=== PATIENT | female | born 1970 | race Caucasian/White ===

== ENCOUNTER → 2017-02-03 | Outpatient (CLI) | payer BC | CPT/HCPCS: 99202 ==

== ENCOUNTER → 2017-09-01 | Outpatient (CLI) | payer BC ==
[2017-09-01 16:22] VITALS: BP 150/97; PULSE 93; TEMP 98.6; BMI 50.3
--- NOTE | 2017-09-01 16:27 | P.BASOAP ---
Subjective Progress Note Date: 09/01/17 Principal diagnosis: Morbid obesity Patient here today interested in sleeve conversion. She has considered for gastric bypass as well but prefers the risk benefit profile of the sleeve. She has gained weight since her band was emptied in the fall. No nausea or vomiting. No abdominal pain. No recent endoscopy. Objective - Vital Signs Vital signs: Vital Signs Temp 98.6 F 09/01/17 15:41 Pulse 93 09/01/17 15:41 Resp BP 150/97 09/01/17 15:41 Pulse Ox Intake & Output 08/31/17 09/01/17 09/01/17 18:59 06:59 18:59 Weight 129.773 kg - Exam Abdomen: Soft, nontender, nondistended Assessment/Plan (1) Morbid obesity Narrative/Plan: Patient I discussed the options of band removal with conversion to either sleeve gastrectomy and gastric bypass. She remains interested in sleeve gastrectomy but we'll continue to consider. We'll plan preoperative upper endoscopy. We'll confer with billing regarding appropriate preoperative authorization. Plan: Date: 09/01/17 Initial Weight: 118.705 kg Initial BMI: 46.0 Current Weight: 129.773 kg Current BMI: 50.3 Type of Surgery: Total Volume in Band: 0 Previous Volume: Volume Removed: Volume Added: Band Size:
== END | disposition home or self-care (01) ==
LOC: BARWHC3 15:03
PROVIDERS: ATTEND Surgery
DX: E66.01 Morbid (severe) obesity due to excess calories (principal); Z68.43 Body mass index [BMI] 50.0-59.9, adult
CPT/HCPCS: 93005; 99211

== ENCOUNTER → 2018-03-19 | Outpatient (CLI) | payer BC ==
--- NOTE | 2018-03-19 12:56 | US ---
EXAMINATION TYPE: US kidneys/renal and bladder DATE OF EXAM: 03/19/2018 COMPARISON: NONE CLINICAL HISTORY: R94.4 Abn kidney function studies. Abnormal labs. No pain per pt. EXAM MEASUREMENTS: Right Kidney: 9.8 x 5.2 x 4.7 cm Left Kidney: 10.2 x 4.7 x 5.9 cm Right Kidney: No hydronephrosis or masses seen Left Kidney: No hydronephrosis or masses seen Bladder: wnl, distended Bilateral Jets seen There is no evidence for hydronephrosis at this point in time. No nephrolithiasis is seen. No andi s are identified. The urinary bladder is anechoic. Bilateral ureteral jets are seen. IMPRESSION: No significant abnormality appreciated.
== END | disposition home or self-care (01) ==
LOC: RADUSWWP 12:06
PROVIDERS: ATTEND Internal Medicine Geriatric Medicine
DX: R94.4 Abnormal results of kidney function studies (principal)
CPT/HCPCS: 76770

== ENCOUNTER → 2018-04-27 | Outpatient (CLI) | payer BC ==
--- NOTE | 2018-04-28 07:11 | US ---
EXAMINATION TYPE: US bladder DATE OF EXAM: 04/27/2018 COMPARISON: NONE CLINICAL HISTORY: R33.9 Retention of urine. Retention of urine, recurrent UTI EXAM MEASUREMENTS: Post Void Residual Volume: 46.0 mL Color Doppler performed to assess ureteral jets. Bilateral Jets seen: yes Normal Post Void Residual (less than 50ml): yes IMPRESSION: No distinct abnormality urinary bladder at this time.
== END | disposition home or self-care (01) ==
LOC: RADUSWWP 16:18
PROVIDERS: ATTEND Internal Medicine Geriatric Medicine
DX: R33.9 Retention of urine, unspecified (principal)
CPT/HCPCS: 76857

== ENCOUNTER → 2021-07-30 | Outpatient (CLI) | payer BC ==
--- NOTE | 2021-07-30 16:01 | P.BASOAP ---
Subjective Progress Note Date: 07/30/21 Principal diagnosis: Epigastric abdominal pain Patient returns to the bariatric clinic complaining of epigastric pain. Says is been going on for the last several months. Says the pain moves occasionally. Sometimes it is near her port other times its in the subxiphoid location. Usually made worse by eating. No right upper quadrant pain. She does have heartburn. No dysphagia or vomiting. No workup thus far. Patient has a band present that was emptied years ago. She has not had restriction since the band was emptied. Patient being evaluated for thyromegaly and says she will be having a thyroid surgery for goiter in the near future. Objective - Exam Abdomen: Soft, nontender, nondistended Assessment/Plan (1) Epigastric abdominal pain Narrative/Plan: 51-year-old female with epigastric abdominal pain. Patient states she is worried about the possibility of an erosion of her lap band. Agree with that I would like to have that possibility eliminated first. We'll proceed with upper endoscopy in the next 1-2 weeks. If no definite explanation for her pain is seen would consider additional diagnostics at that time. Also discussed possible subsequent band removal. Plan: Date: Initial Weight: 118.705 kg Initial BMI: Current Weight: Current BMI: Type of Surgery: Total Volume in Band: 0 Previous Volume: Volume Removed: Volume Added: Band Size:
[2021-07-30 16:06] VITALS: BP 176/82; PULSE 101; RESP 16; TEMP 98.3; BMI 53.0
== END ==
LOC: BARWHC3 15:29
PROVIDERS: ATTEND Surgery
DX: R10.13 Epigastric pain (principal); Z98.84 Bariatric surgery status
CPT/HCPCS: 99211

== ENCOUNTER → 2021-11-08 | Outpatient (CLI) | payer BC ==
[2021-11-08 11:36] VITALS: BP 168/90; PULSE 88; BMI 53.4
== END ==
LOC: BARWHC3 11:02
PROVIDERS: ATTEND Surgery
DX: Z09 Encounter for follow-up examination after completed treatment for conditions other than malignant neoplasm (principal); K29.70 Gastritis, unspecified, without bleeding; B96.1 Klebsiella pneumoniae [K. pneumoniae] as the cause of diseases classified elsewhere; Z88.5 Allergy status to narcotic agent; Z88.6 Allergy status to analgesic agent
CPT/HCPCS: 83013; 99211

== ENCOUNTER → 2022-04-28 | Outpatient (CLI) | payer BC | END | disposition home or self-care (01) | LOC: RADCTMAIN 15:14 | PROVIDERS: ATTEND Surgery | DX: Z53.9 Procedure and treatment not carried out, unspecified reason (principal) ==